=== PATIENT | male | born 1950 | race Caucasian/White ===

== ENCOUNTER 2017-06-19 04:24 | Emergency (ER) | payer BC, OTHER ==
[~2017-06-19] VITALS: Ht 182.9 cm; Wt 100.0 kg
[~2017-06-19 04:24] MED LIST: ALLO300 PO; COLE1TAB PO; FENO50TA PO; GLUCTAB PO; LEXA10TA PO; NAPR500 PO; OMEP20CA5 PO; TYLE3 PO
[2017-06-19 04:31] VITALS: BP 139/88; PULSE 71; RESP 18; TEMP 97.7; O2SAT 96
[2017-06-19 04:51] VITALS: BP 139/88; PULSE 71; RESP 18; TEMP 97.7; O2SAT 96
[2017-06-19] MEDS ORDERED: PRED-503 PO (04:53)
[2017-06-19] MEDS ORDERED: CLAR10CA3 PO (04:53)
--- NOTE | 2017-06-19 04:54 | PD ---
HPI Chief Complaint: cough Time Seen by Provider: 04:35 Travel History International Travel<30 days: No Contact w/Intl Traveler<30days: No History of Present Illness HPI This is an otherwise fairly healthy 66 old man who presents emergency room complaining of cough congestion and some coughing with lying flat. States he doesn't really feel like he has a cold that has cirrhosis dry cough started over the past day or so. He is worried because he is mold in his house and he went back to sleep and there couple days ago and started getting these symptoms. He has no history of lung disease. He quit smoking tobacco back in 1990. His son is staying now symptoms started having similar problems. No chest pain. He otherwise has been feeling generally well and healthy. No other complaints. History Past Medical History Narrative Medical Gout History diabetes Anxiety Hyperlipidemia Social History Alcohol Use: Yes (VERY RARELY) Tobacco Use: No Allergies-Medications (Allergen,Severity, Reaction): Coded Allergies: No Known Allergies (Unverified , 10/20/10) Reported Meds & Prescriptions Reported Meds & Active Scripts Active Tylenol #3 (Acetaminophen/Codeine Phosphate) 300 Mg/30 Mg Tab 1 Tab PO Q6HPRN FOR PAIN Naprosyn (Naproxen) 500 Mg Tab 500 Mg PO BIDPRN 30 Days Reported Lexapro (Escitalopram Oxalate) 10 Mg Tab 15 Mg PO DAILY Prilosec (Omeprazole) 20 Mg Capcr 20 Mg PO DAILY Glucophage (Metformin HCl) 500 Mg Tab 500 Mg PO BID Tricor (Fenofibrate) 145 Mg Tab 160 Mg PO DAILY Zyloprim (Allopurinol) 300 Mg Tab 300 Mg PO DAILY Colestid (Colestipol HCl) 1 Gm Tab 1 Gm PO BID Review of Systems Except as stated in HPI: all other systems reviewed are Neg Physical Exam Narrative GENERAL: Well-appearing 66 old man, no acute distress. SKIN: Focused skin assessment warm/dry. CARDIOVASCULAR: Regular rate and rhythm. No murmur appreciated. RESPIRATORY: No accessory muscle use. Clear to auscultation. Breath sounds equal bilaterally. GASTROINTESTINAL: Abdomen soft, non-tender, nondistended. Hepatic and splenic margins not palpable. MUSCULOSKELETAL: No obvious deformities. No clubbing. No cyanosis. No edema. NEUROLOGICAL: Awake and alert. No obvious cranial nerve deficits. Motor grossly within normal limits. Normal speech. PSYCHIATRIC: Appropriate mood and affect; insight and judgment normal. Data Data Last Documented VS Vital Signs Date Time Temp Pulse Resp B/P Pulse Ox O2 Delivery O2 Flow Rate FiO2 06/19/17 04:31 97.7 71 18 139/88 96 Orders Prednisone (Deltasone) (06/19/17 05:00) [facility] Medical Decision Making Medical Screen Exam Complete: Yes Emergency Medical Condition: Yes Differential Diagnosis URI, postnasal drip, allergen exposure, pneumonia, GERD, other Narrative Course Medical decision making 66-year-old with cough and allergy symptoms. Possibly related to mold exposure. He is given a move out of the house again. He is in a legal swenson regarding getting it repaired. He looks otherwise well. No chest pain or other symptoms of more concerning etiology. No significant shortness of breath. We'll do steroids and antihistamines for short course. Outpatient follow-up. Diagnosis Primary Impression: Cough Additional Instructions: Take medications as prescribed. Follow-up with your primary doctor in 1 week if you're not completely well. Return to the emergency department for any chest pain, shortness of breath, or any other new or worsening symptoms. Med/Other Pt SpecificInfo: Prescription(s) given Scripts Loratadine (Claritin)10 Mg Cap10 Mg PO DAILY 5 Days Ref 0 Prov:Cody Genao MD 06/19/17 Prednisone (Deltasone)20 Mg Tab20 Mg PO BID 5 Days Prov:Cody Genao MD 06/19/17 Disposition: 01 DISCHARGE HOME Condition: Stable Cody Genao MD Jun 19, 2017 04:54
[2017-06-19] MEDS ORDERED: ALLO300T2 PO (05:00)
[2017-06-19] MEDS ORDERED: predniSONE 20 MG TAB PO ONE (05:00)
[2017-06-19] MEDS ORDERED: BUSP15TA PO (05:00)
[2017-06-19] MEDS ORDERED: SIMV10TA PO (05:00)
[2017-06-19 05:05] VITALS: BP 149/93
== END 2017-06-19 05:13 | disposition home or self-care (01) ==
LOC: PHED 04:24
DX: R05 Cough (principal)
CPT/HCPCS: 99283; J7512